=== PATIENT | female | born 1990 | race Asian ===

== ENCOUNTER 2021-08-22 21:08 | Emergency (ER) | payer MEDICAID ==
[~2021-08-22] VITALS: Ht 152.4 cm; Wt 43.6 kg
[2021-08-23] MEDS: DEXAMETHASONE 4 MG TABLET PO ONE (00:14)
--- NOTE | 2021-08-23 00:19 | PHYS DOC ---
Past Medical History Past Medical History: No Pertinent History Past Surgical History: No Surgical History Smoking Status: Never Smoker Alcohol Use: None Drug Use: None General Adult EDM: Chief Complaint: FLU SYMPTOM HPI: HPI: Patient is a 31 year old female here for cough and sore throat. She states her symptoms started since yesterday. Reports loss of taste and smell. She has not taken anything to relieve her symptoms. She denies fever or vomiting. She states she had the COVID-19 vaccine x 2 but not the booster shot. She also denies getting the flu shot this year. She has no past medical history. Denies known sick contacts. Denies . Reports she receives [employer] shots. Patient is Syriac speaking and therefore utilization of [employer] medical interpreter utilized. Review of Systems: Review of Systems: Constitutional: Denies fever or chills; reports malaise Eyes: Denies redness or eye pain HENT: Denies nasal congestion. Reports sore throat Respiratory: Reports cough and shortness of breath Cardiovascular: Denies chest pain or palpitations GI: Denies abdominal pain, nausea, or vomiting : Denies dysuria or hematuria Musculoskeletal: Denies back pain or joint pain Integument: Denies rash or skin lesions Neurologic: Denies headache, focal weakness or sensory changes Complete systems were reviewed and found to be within normal limits, except as documented in this note. Heart Score: C/O Chest Pain: N/A Current Medications: Current Medications Medications (Trade) Dose Ordered Sig/Alejandra Start Time Stop Time Status Last Admin Dose Admin Dexamethasone (Decadron) 10 mg 1X ONCE 08/23/21 00:30 08/23/21 00:31 08/23/21 00:14 10 MG Ondansetron HCl (Zofran Odt) 4 mg 1X ONCE 08/23/21 00:30 08/23/21 00:11 DC Allergies: Allergies: Allergies Coded Allergies Type Severity Reaction Last Updated Verified No Known Drug Allergies 08/22/21 No Physical Exam: PE: Constitutional: Well developed, well nourished, no acute distress, non-toxic appearance HENT: Normocephalic, atraumatic, pharyngeal erythema without exudates Eyes: PERRL, EOMI, conjunctiva normal, no discharge Neck: Normal range of motion, no tenderness, supple, no meningeal signs Lungs & Thorax: No respiratory distress, equal chest rise and fall Abdomen: Soft, no tenderness Skin: Warm, dry, no erythema, no rash Extremities: No tenderness, ROM intact, no edema Neurologic: Alert and oriented X 3, no focal deficits noted Psychologic: Affect normal, judgment normal Radiology/Procedures: Radiology/Procedures: PROCEDURE: CHEST AP ONLY EXAM: AP View of the chest DATE: 08/22/2021 11:56 PM INDICATION: Reason: cough, COVID PUI / Spl. Instructions: / History: COMPARISON: No Prior FINDINGS: The heart is not enlarged. Patchy perihilar and left greater than right lung base airspace opacities likely consolidative process as pneumonia. No pleural effusion or pneumothorax. IMPRESSION: Patchy perihilar and left greater than right lung base airspace opacities likely consolidative process as pneumonia. Electronically signed by: Lj Silva MD (08/23/2021 12:51 AM) TRA Course & Med Decision Making: Course & Med Decision Making Pertinent Labs and Imaging studies reviewed. (See chart for details) 31 year old female presenting with cough and sore throat. Exam revealed pharyngeal erythema and lungs are clear to auscultation. Concern for viral syn drome. COVID PCR pending. Rapid influenza negative. Rapid strep negative. CXR revealed right lung base opacities concerning for COVID-19 infection. Patient's vital signs are stable. Sats stable. She will be given Azithromycin for home. Patient stable for discharge with outpatient follow-up with PCP. Discussed findings and plan with patient, who acknowledges understanding and agreement. COVID-19 CRITERIA: The patient was evaluated during the global COVID-19 pandemic, and that diagnosis was suspected/considered upon their initial presentation. Their evaluation, treatment and testing was consistent with current guidelines for patients who present with complaints or symptoms that may be related to COVID-19. Dragon Disclaimer: Dragon Disclaimer: This electronic medical record was generated, in whole or in part, using a voice recognition dictation system. Departure Departure Impression: Primary Impression: Viral syndrome Additional Impression: Suspected 2019 novel coronavirus infection Disposition: HOME / SELF CARE / HOMELESS Condition: STABLE Referrals: NO PCP (PCP) Patient Instructions: Viral Syndrome Additional Instructions: You have been tested for or diagnosed with COVID-19. It is an infection caused by a new type of coronavirus. COVID-19 will cause cold-like or mild flu symptoms in most. It can cause more severe symptoms like problems breathing in some. There is no treatment for COVID-19. The body will clear the infection over time. Self-care will help to ease discomfort. Steps to Take: Self-Care Rest as needed. Healthy habits may help you feel better. Steps include: Choose healthy foods including fruits and vegetables. Drink water throughout the day. Get plenty of sleep each night. If you smoke, try to quit. It may ease breathing. Avoid alcohol. Keep Others Healthy The virus can spread to others. Droplets are released every time you sneeze or cough. The droplets can get into the mouth, nose, or eyes of people near you and lead to infection. To lower the chances of spreading COVID-19 to others: Stay at home until your doctor has said it is safe to leave. If you tested positive this will mean staying isolated until both of the following are true: At least 7 days have passed since the start of illness. You are free of fever for at least 72 hours without the use of medicine. During this time: - Avoid public areas, events, or transportation. Do not return to work or school until your doctor has said it is safe to do so. - Call ahead if you need to go to a medical center. Let them know you may have COVID-19. It will help them guide you where to go. They may also ask you to wear a facemask when you come to the office. - If you call for emergency medical services, let them know you may have COVID- 19. While at home: - Try to avoid close contact with others. Stay about 6 feet away. - If possible, spend most of your time in a separate room from others. - Use a face mask if you will be in close contact with others such as sharing a room or vehicle. - Have someone wipe down common surfaces in the home. Use household weaving machine operator every day on areas like doorknobs, counters, or sinks. - Cough or sneeze into a tissue. Throw the tissue away right after use. If a tissue is not available, cough or sneeze into your elbow. - Wash your hands often. Wash them after sneezing or coughing. Use soap and water and wash for at least 20 seconds. Alcohol based hand core cleaner can be used if soap and water is not available. - Do not prepare food for others. Avoid sharing personal items like forks, spoons, or toothbrushes. - Avoid close contact with pets while you are sick. There is no evidence of the virus passing to pets. This is a safety step until more is known about this virus. Isolation can be frustrating. Social interaction can help. Keep in touch with friends and family through phone and tech options. You can still interact with others in your home, just keep a safe distance of about 6 feet. Follow-up: Your doctors office will check in with you to see if there are any changes in your health. You may be asked to keep track of symptoms to share with them. They will also let you know when you are clear to be in public again. Problems to Look Out For: Contact your doctor if your recovery is not going as you expect. Get emergency care if you have problems such as: - Trouble breathing - Nonstop chest pain or pressure - Changes in awareness, confusion, or problems waking - Lips or face have bluish color - Worsening of symptoms If you think you have an emergency, call for emergency medical services right away. As taken from [facility] Benzonatate (BENZONATATE) 200 Mg Capsule 1 CAP PO PRN TID PRN for cough, #30 CAP 0 Refills Prov: YESENIA MOREIRA DO 08/23/21 Azithromycin (ZITHROMAX) 250 Mg Tablet 1 PKG PO UD for COVID pneumonia, #6 TAB Take 2 tablets on day 1 and then 1 tablet each day for the next 4 days as directed Prov: YESENIA MOREIRA DO 08/23/21 COVID-19 Assessment: COVID-19 Patient Risks: Age 65 or older: No Sign of co-morbidity: No Exp to person + for COVID: No Exp to PUI: No Travel from affected area: No Lower respiratory symptoms: Yes Fever: No Other: Yes PPE Use: Full PPE with N95 mask or PAPR: Yes YESENIA MOREIRA DO Aug 23, 2021 00:19
[2021-08-23] MEDS ORDERED: ONDANSETRON ODT 4 MG TAB.RAPDIS. PO ONE (00:30)
[2021-08-23 00:32] LABS: INFLUENZA A PATIENT NEGATIVE (NEGATIVE); INFLUENZA B PATIENT NEGATIVE (NEGATIVE)
[2021-08-23] MEDS ORDERED: BENZ200C47 PO (00:52)
[2021-08-23] MEDS ORDERED: AZIT250T PO (00:52)
--- NOTE | 2021-08-23 00:53 | RAD ---
EXAM: AP View of the chest DATE: 08/22/2021 11:56 PM INDICATION: Reason: cough, COVID PUI / Spl. Instructions: / History: COMPARISON: No Prior FINDINGS: The heart is not enlarged. Patchy perihilar and left greater than right lung base airspace opacities likely consolidative proces s as pneumonia. No pleural effusion or pneumothorax. IMPRESSION: Patchy perihilar and left greater than right lung base airspace opacities likely consolidative proces s as pneumonia. Electronically signed by: Lj Silva MD (08/23/2021 12:51 AM) TRA
[2021-08-23 01:01] VITALS: BP 145/85
--- NOTE | 2021-08-24 15:16 | NUR ---
IP: Informed pt and spouse of positive covid test and the need to quarantine for 10 days. Pt verbalized understanding.
== END 2021-08-23 01:22 | disposition home or self-care (01) ==
LOC: ER 21:08
DX: U07.1 COVID-19 (principal); B34.9 Viral infection, unspecified
CPT/HCPCS: 71045; 87070; 87804; 87880; 99284; U0003; U0005